=== PATIENT | female | born 1935 | race Caucasian/White ===

== ENCOUNTER → 2017-05-16 | Outpatient (CLI) | payer OTHER ==
--- NOTE | 2017-05-16 15:11 | MAMMOGRAPHY REPORT ---
BILATERAL DIGITAL SCREENING MAMMOGRAM WITH CAD: 05/16/2017 CLINICAL HISTORY: Routine screening. Patient has no complaints. TECHNIQUE: Bilateral CC, MLO and left exaggerated lateral CC views were obtained. Current study was also evaluated with a Computer Aided Detection (CAD) system. COMPARISON: Comparison is made to exams dated: 05/10/2016 mammogram, 04/28/2015 mammogram, 03/28/2014 mammogram, 03/14/2013 mammogram, 03/01/2013 mammogram, and 02/21/2012 mammogram - [facility]. BREAST COMPOSITION: There are scattered areas of fibroglandular density in both breasts. FINDINGS: There are mild vascular calcifications in the breasts. Scattered benign rim calcifications in the right breast. No enw suspicious mass, architectural distortion or cluster of microcalcificat ions is seen. IMPRESSION: ACR BI-RADS CATEGORY 1: NEGATIVE There is no mammographic evidence of malignancy. A 1 year screening mammogram is recommended. The pa tient will receive written notification of the results. Approximately 10% of breast cancers are not detected with mammography. A negative mammographic report should not delay biopsy if a clinically suggestive mass is present. Whitney Mike M.D. ay/:05/16/2017 14:55:14 Review Nurse: Brenda HAUSER(R)(M), [facility] letter sent: Normal 1/2 BI-RADS Code: ACR BI-RADS Category 1: Negative
== END | disposition home or self-care (01) ==
LOC: C.MAMM 12:42
PROVIDERS: ATTEND Family Medicine
DX: Z12.31 Encounter for screening mammogram for malignant neoplasm of breast (principal)

== ENCOUNTER → 2017-07-25 | Outpatient (CLI) | payer OTHER ==
--- NOTE | 2017-07-25 11:38 | DIAGNOSTIC IMAGING REPORT ---
LEFT KNEE RADIOGRAPHS WITH COMPARISON STANDING AP RADIOGRAPH OF THE RIGHT KNEE CLINICAL HISTORY: Chronic left knee pain. COMPARISON: Knee radiographs November 20, 2014. FINDINGS: Comparison standing AP radiograph of the right knee demonstrates mild osteophytosis. There is no acute fracture or joint effusion within the left knee. There is severe narrowing of the lateral patellofemoral compartment. There is no joint effusion. A few calcific densities projecting lateral to the patella measure 2 cm. These suggest joint bodies. Medial and lateral compartment joint spaces are preserved with mild osteophytosis. IMPRESSION: 1. No acute fracture or joint effusion of the left knee. 2. Severe osteoarthritis of the patellofemoral compartment with mild osteophytosis within the medial and lateral compartments. 3. Several suspected joint bodies. Electronically signed by: Russell Mosquera M.D. 07/25/2017 11:37 AM Dictated Date/Time: 07/25/2017 11:35 AM
== END | disposition home or self-care (01) ==
LOC: C.RDSM 08:00
PROVIDERS: ATTEND Physician Assistant
DX: M25.562 Pain in left knee (principal); M17.12 Unilateral primary osteoarthritis, left knee

== ENCOUNTER → 2017-08-01 | Outpatient (CLI) | payer OTHER ==
--- NOTE | 2017-08-01 13:38 | DIAGNOSTIC IMAGING REPORT ---
RIGHT KNEE 4 VIEWS INCLUDING BILATERAL STANDING AP VIEWS CLINICAL HISTORY: Chronic right knee pain COMPARISON: None DISCUSSION: The bones are osteopenic. No acute fractures are visualized. There are moderate degenerative changes within the patellofemoral joint with narrowing of the medial patellar facet. IMPRESSION: 1. No acute fractures 2. Osteoarthritic changes most pronounced within the patellofemoral joint Electronically signed by: Karlos Goldman M.D. 08/01/2017 1:37 PM Dictated Date/Time: 08/01/2017 1:34 PM
== END | disposition home or self-care (01) ==
LOC: C.RDSM 16:21
PROVIDERS: ATTEND Physician Assistant
DX: M25.561 Pain in right knee (principal); M17.11 Unilateral primary osteoarthritis, right knee